=== PATIENT | female | born 1985 | race Hispanic/Latino ===

== ENCOUNTER 2018-05-12 01:18 | Observation (INO) | payer BC ==
[~2018-05-12] VITALS: Ht 167.6 cm; Wt 89.0 kg
[2018-05-12 01:52] LABS: APPEARANCE,URINE Clear (CLEAR); BILIRUBIN,URINE Negative (NEGATIVE); COLOR,URINE Yellow (YELLOW); GLUCOSE, URINE (UA) Negative (NEGATIVE); KETONES,URINE >=160 mg/dL (NEGATIVE); LEUKOCYTE ESTERASE ,URINE Negative (NEGATIVE); NITRATE,URINE Negative (NEGATIVE); OCCULT BLOOD,URINE Trace (NEGATIVE); PH,URINE 5.5 (5.0-8.0); PROTEIN,URINE Negative (NEGATIVE)
[2018-05-12 02:06] LABS: BACTERIA,URINE None Seen /HPF (None Seen); MUCUS,URINE Rare LPF (None Seen); RBC,URINE 0-1 /HPF (0-1); SQUAMOUS EPITHELIAL CELL,UR Rare /HPF (0-2); WBC,URINE None Seen /HPF (0-1)
[2018-05-12 02:17] LABS: BASOPHILS % (AUTO) 0.5 % (0.0-5.0); EOSINOPHILS % (AUTO) 0.2 % (0.0-8.0); LYMPHOCYTES % (AUTO) 14.1 % (21.0-51.0); MEAN CORPUSCULAR HEMOGLOBIN 30.4 pg (27.0-33.0); MEAN CORPUSCULAR HGB CONC 33.8 g/dL (32.0-36.0); MEAN CORPUSCULAR VOLUME 89.8 fL (79-99); MONOCYTES % (AUTO) 11.3 % (3.0-13.0); NEUTROPHILS % (AUTO) 73.9 % (40.0-77.0); PLATELET COUNT (AUTO) 113 K/uL (130-400); RED BLOOD CELL COUNT(AUTO) 4.46 MIL/uL (4.00-5.50); WHITE BLOOD COUNT (AUTO) 3.1 K/uL (4.8-10.8)
[2018-05-12 02:20] LABS: CREATININE 0.7 mg/dL (0.5-1.5); POTASSIUM 3.6 mmol/L (3.5-5.1)
[2018-05-12] MEDS ORDERED: ONDANSETRON HCL 4 MG/2 ML VIAL ONE ×3 (02:31→09:19)
[2018-05-12] MEDS ORDERED: MORPHINE SULFATE 4 MG/1ML SYG ONE ×2 (02:32→09:19)
[2018-05-12] MEDS ORDERED: GADODIAMIDE 10 MMOL/20 ML ML IV ONE (03:57)
[2018-05-12] MEDS ORDERED: HYDROMORPHONE 1 MG/1 ML AMP ONE (04:53)
[2018-05-12] MEDS ORDERED: ACETAMINOPHEN 325 MG TAB ONE (08:44)
[2018-05-12] MEDS ORDERED: SODIUM CHLORIDE 0.9% 1000ML 1,000 ML IV ONE ×2 (08:45→11:17)
[2018-05-12] MEDS: SODIUM CHLORIDE 0.9% 1000ML 1,000 ML IV SCH ×2 (09:42→20:58)
[2018-05-12] MEDS: LIDOCAINE 5% TOPICAL PATCH TP SCH (09:45)
[2018-05-12] MEDS ORDERED: ONDANSETRON HCL 4 MG/2 ML VIAL IV PRN (09:45)
[2018-05-12] MEDS ORDERED: MAG HYDROX/AL HYDROX/SIMETH ES 30 ML SUSP UDCUP PO PRN (09:45)
[2018-05-12] MEDS ORDERED: ACETAMINOPHEN 325 MG TAB PO PRN (09:45)
[2018-05-12] MEDS ORDERED: ZOLPIDEM TARTRATE 5 MG TAB PO PRN (09:45)
[2018-05-12] MEDS ORDERED: LIDOCAINE 5% TOPICAL PATCH TP ONE (11:16)
[2018-05-12] MEDS ORDERED: DEXAMETHASONE SOD PHOSPHATE 4 MG/ML 1ML VIAL ONE (11:16)
[2018-05-12] MEDS: DEXAMETHASONE SOD PHOSPHATE 4 MG/ML 1ML VIAL IVP SCH ×3 (14:00→20:51)
[2018-05-12 14:05] VITALS: BP 104/59
[2018-05-12] MEDS: BACLOFEN 10 MG TABLET PO SCH ×2 (14:44→20:52)
[2018-05-12 20:00] VITALS: BP 117/54
[2018-05-12] MEDS: OSELTAMIVIR PHOSPHATE 75 MG CAP PO SCH (20:52)
[2018-05-12] MEDS: BISACODYL 5 MG TABLET.DR PO SCH (20:52)
[2018-05-12] MEDS: ACETAMINOPHEN-CODEINE 300/30MG TAB PO PRN (20:53)
[2018-05-13] VITALS: BP 121/61
[2018-05-13 04:00] VITALS: BP 113/49
[2018-05-13 08:00] VITALS: BP 127/68
[2018-05-13 08:15] LABS: HEMATOCRIT 41.8 % (36-48); MEAN CORPUSCULAR HEMOGLOBIN 30.2 pg (27.0-33.0); MEAN CORPUSCULAR HGB CONC 33.7 g/dL (32.0-36.0); MEAN CORPUSCULAR VOLUME 89.7 fL (79-99); NUCLEATED RED BLOOD CELLS 0.2 % (0.0-0.19); PLATELET COUNT (AUTO) 125 K/uL (130-400); RED BLOOD CELL COUNT(AUTO) 4.66 MIL/uL (4.00-5.50); RED CELL DISTRIBUTION WIDTH 12.8 % (11.0-15.5)
[2018-05-13] MEDS: ACETAMINOPHEN-CODEINE 300/30MG TAB PO PRN (08:18)
[2018-05-13 08:33] LABS: ALBUMIN 3.5 g/dL (3.5-5.0); BILIRUBIN,TOTAL 0.4 mg/dL (0.2-1.0); CREATININE 0.7 mg/dL (0.5-1.5); CRP QUANTITATIVE 5.4 mg/L (0.00-9.0); PHOSPHORUS 4.5 mg/dL (2.5-4.9); POTASSIUM 3.6 mmol/L (3.5-5.1); TOTAL PROTEIN, SERUM 7.3 g/dL (6.0-8.3)
[2018-05-13] MEDS ORDERED: ENOXAPARIN SODIUM 40 MG/0.4 ML SYRINGE SQ SCH (09:00)
[2018-05-13] MEDS: BISACODYL 5 MG TABLET.DR PO SCH (09:00)
[2018-05-13] MEDS ORDERED: PANTOPRAZOLE 40 MG/VIAL IVP SCH (09:00)
[2018-05-13] MEDS ORDERED: POLYETHYLENE GLYCOL 3350 17 GM POWD.PACK PO SCH (09:00)
[2018-05-13] MEDS: SODIUM CHLORIDE 0.9% 1000ML 1,000 ML IV SCH (09:00)
[2018-05-13 09:06] LABS: LYMPHOCYTES % (MANUAL) 16 % (22-44); MAN.DIFF COMMENT-IMPRESSION MANUAL DIFFERENTIAL; MONOCYTES % (MANUAL) 10 % (2-9); SEGMENTED NEUTROPHILS % 74 % (40-70)
[2018-05-13 09:07] LABS: PLATELET MORPHOLOGY COMMENT SLIGHTLY DECREASED
[2018-05-13] MEDS ORDERED: OSEL75 PO (09:16)
[2018-05-13] MEDS: LIDOCAINE 5% TOPICAL PATCH TP SCH (09:17)
[2018-05-13] MEDS ORDERED: IBUP-2070 PO (09:17)
[2018-05-13] MEDS: OSELTAMIVIR PHOSPHATE 75 MG CAP PO SCH (09:17)
[2018-05-13] MEDS ORDERED: PANTOPRAZOLE SODIUM 40 MG TABLET.DR PO ONE (09:21)
[2018-05-13] MEDS: BACLOFEN 10 MG TABLET PO SCH (09:29)
[2018-05-13] MEDS ORDERED: PANTOPRAZOLE SODIUM 40 MG TABLET.DR PO SCH (09:30)
[2018-05-13] MEDS: DEXAMETHASONE SOD PHOSPHATE 4 MG/ML 1ML VIAL IVP SCH (09:31)
== END 2018-05-13 10:26 | disposition home or self-care (01) ==
LOC: EDH 01:18 → EDHIP 09:00 → 3BH 14:11
PROVIDERS: ADMIT Internal Medicine; ATTEND Internal Medicine
DX: J10.1 Influenza due to other identified influenza virus with other respiratory manifestations (principal); R11.2 Nausea with vomiting, unspecified; M54.9 Dorsalgia, unspecified; E66.9 Obesity, unspecified; E86.0 Dehydration; E86.1 Hypovolemia; K76.0 Fatty (change of) liver, not elsewhere classified; Z68.31 Body mass index [BMI] 31.0-31.9, adult; Z23 Encounter for immunization; Z82.49 Family history of ischemic heart disease and other diseases of the circulatory system; Z83.3 Family history of diabetes mellitus; Z90.710 Acquired absence of both cervix and uterus
CPT/HCPCS: 36415 ×2; 72156; 72157; 72158; 80048; 80053; 80339; 81001; 81025; 83605; 83735; 84100; 85025; 85027; 86140; 87040 ×2; 87804 ×2; 96361 ×2; 96372; 96374; 96376 ×2; 99285; A9579; G0008; G0378 ×25; J1100 ×4; J1170; J1650; J2270 ×2; J2405 ×3; J7030 ×2; Q2038; C9113

== ENCOUNTER 2019-03-25 21:20 | Emergency (ER) | payer BC, OTHER ==
[~2019-03-25 21:20] MED LIST: IBUP-2070 PO; OSEL75 PO
[2019-03-25] MEDS ORDERED: DICYCLOMINE HCL 10 MG/ML 2ML AMP IM ONE (23:08)
[2019-03-25] MEDS ORDERED: SIMETHICONE 80 MG TAB.CHEW ONE (23:09)
[2019-03-25] MEDS ORDERED: ACETAMINOPHEN EXTRA STRENGTH 500 MG TABLET ONE (23:09)
[2019-03-26] MEDS ORDERED: KETOROLAC TROMETHAMINE 60 MG/2 ML VIAL ONE (00:19)
[2019-03-26] MEDS ORDERED: ONDANSETRON ODT 4 MG TAB ONE ×2 (00:24→00:27)
== END 2019-03-26 00:41 | disposition home or self-care (01) ==
LOC: EDH 21:20
DX: K52.9 Noninfective gastroenteritis and colitis, unspecified (principal); Z90.49 Acquired absence of other specified parts of digestive tract; Z90.710 Acquired absence of both cervix and uterus
CPT/HCPCS: 96372 ×3; 99284; J0500; J1885